=== PATIENT | male | born 1975 | race Caucasian/White ===

== ENCOUNTER 2016-11-29 16:41 | Emergency (ER) | payer SELFPAY | END 2016-11-29 20:35 | disposition home or self-care (01) | LOC: ER 16:41 | DX: N13.2 Hydronephrosis with renal and ureteral calculous obstruction (principal); R31.9 Hematuria, unspecified; F17.220 Nicotine dependence, chewing tobacco, uncomplicated; Z88.8 Allergy status to other drugs, medicaments and biological substances | CPT/HCPCS: 36415; 96374; 96375; J1885; Q9963; Q9967 ==

== ENCOUNTER 2017-02-25 14:03 | Emergency (ER) | payer SELFPAY | END 2017-02-25 16:34 | disposition home or self-care (01) | LOC: ER 14:03 | DX: N13.2 Hydronephrosis with renal and ureteral calculous obstruction (principal); F17.220 Nicotine dependence, chewing tobacco, uncomplicated; Z87.442 Personal history of urinary calculi; Z91.040 Latex allergy status | CPT/HCPCS: 36415; 96361; 96374; 96375; J1885 ==

== ENCOUNTER → 2017-03-01 | Day surgery (SDC) | payer SELFPAY | END | disposition home or self-care (01) | LOC: SDC 09:50 | DX: N13.2 Hydronephrosis with renal and ureteral calculous obstruction (principal); E66.9 Obesity, unspecified; F17.210 Nicotine dependence, cigarettes, uncomplicated; Z79.891 Long term (current) use of opiate analgesic | CPT/HCPCS: C1894; J1885; J2704; Q9967 ==